=== PATIENT | male | born 1955 | race American Indian/Alaskan Native ===

== ENCOUNTER 2020-08-13 12:37 | Emergency (ER) | payer MEDICARE ==
[2020-08-13 12:54] VITALS: BP 141/84
--- NOTE | 2020-08-13 13:58 | Emergency Department Report ---
ED Abdominal Pain HPI - General Chief Complaint: Abdominal Pain Stated Complaint: ABD PAIN Time Seen by Provider: 08/13/20 13:46 Source: patient Mode of arrival: Ambulatory Limitations: No Limitations - History of Present Illness Initial Comments: This is a 65-year-old -[place] male he presents to the emergency room complaining of generalized abdominal pain and bloating. He denies nausea vomiting no fever chills negative cough no chest pain or shortness of breath. He states the pain comes and go and it is a #6 on the 1-10 scale. Patient was seen at [facility] yesterday and told that they recommended ultrasound and follow-up in the emergency room if no improvement or worsening symptoms. MD Complaint: abdominal pain -: week(s) (2 weeks ) Location: diffuse Quality: aching Consistency: constant Improves With: nothing Worsens With: nothing Associated Symptoms: other (bloating). denies: nausea, vomiting, diarrhea, chills - Related Data Previous Rx's Medication Instructions Recorded Last Taken Type Ondansetron [Zofran Odt] 4 mg PO Q8HR PRN #12 tab.rapdis 08/13/20 Unknown Rx traMADoL [Ultram 50 MG tab] 50 mg PO Q6HR PRN #20 tablet 08/13/20 Unknown Rx Allergies Allergy/AdvReac Type Severity Reaction Status Date / Time No Known Allergies Allergy Unverified 08/13/20 12:54 ED Review of Systems ROS: Stated complaint: ABD PAIN Other details as noted in HPI Comment: All other systems reviewed and negative Constitutional: denies: chills, fever Eyes: denies: eye pain, vision change ENT: denies: ear pain, hearing loss Cardiovascular: denies: chest pain, syncope Endocrine: denies: excessive sweating, intolerance to cold, increased hunger, increased thirst Gastrointestinal: abdominal pain, other (1 day of loose stools). denies: nausea, vomiting, constipation Genitourinary: denies: urgency, dysuria, frequency, hematuria, testicular pain Neurological: denies: headache ED Past Medical Hx - Past Medical History Previous Medical History?: Yes Hx Hypertension: Yes Hx Diabetes: Yes - Surgical History Past Surgical History?: Yes Additional Surgical History: Cardiac pacemaker. Cardiac stents - Social History Smoking Status: Never Smoker Substance Use Type: None - Medications Home Medications: Home Medications Medication Instructions Recorded Confirmed Last Taken Type Ondansetron [Zofran Odt] 4 mg PO Q8HR PRN #12 tab.rapdis 08/13/20 Unknown Rx traMADoL [Ultram 50 MG tab] 50 mg PO Q6HR PRN #20 tablet 08/13/20 Unknown Rx ED Physical Exam - General Limitations: No Limitations General appearance: alert, in no apparent distress - Head Head exam: Absent: atraumatic - Eye Eye exam: Present: normal appearance. Absent: scleral icterus - ENT ENT exam: Present: normal exam, normal orophraynx, mucous membranes moist - Neck Neck exam: Present: normal inspection - Respiratory Respiratory exam: Present: normal lung sounds bilaterally. Absent: respiratory distress, wheezes - Cardiovascular Cardiovascular Exam: Present: regular rate, normal heart sounds, other (+ murmur) - GI/Abdominal GI/Abdominal exam: Present: soft, distended, tenderness, hypoactive bowel sounds. Absent: guarding, rebound, rigid, organomegaly, mass, pulsatile mass, hernia - Rectal Rectal exam: Absent: deferred - Extremities Exam Extremities exam: Present: normal inspection - Back Exam Back exam: Present: normal inspection - Neurological Exam Neurological exam: Present: alert, oriented X3 - Psychiatric Psychiatric exam: Present: normal affect, normal mood - Skin Skin exam: Present: warm, dry ED Course Vital Signs 08/13/20 08/13/20 12:53 14:32 Temperature 98 F Pulse Rate 66 Respiratory 18 16 Rate Blood Pressure 141/84 O2 Sat by Pulse 99 Oximetry - Reevaluation(s) Reevaluation #1: 08/13/20 16:14 Patient with no relief from Tylenol morphine IV and Zofran IV given for pain blood work is back and he has lipase of 136. CT of the abdomen completed awaiting results Reevaluation #2: 08/13/20 16:58 Findings reviewed with patient he now states that he is feeling better decreased abdominal pain I discussed findings with Dr. Givens . he agrees with plan of discharging patient home with follow up by his primary care physician 08/13/20 18:00 ED Medical Decision Making - Lab Data Result diagrams: 08/13/20 14:32 08/13/20 14:32 - EKG Data When compared to previous EKG there are: previous EKG unavailable Interpretation: other (Atrial ventircular dual paced rhythm Rate 80) - Radiology Data Radiology results: report reviewed CT of Abdomen FINDINGS: LOWER CHEST: No significant abnormality. HEPATOBILIARY: No significant abnormality. PANCREAS: No significant abnormality. SPLEEN: No significant abnormality. ADRENALS: No significant abnormality. GENITOURINARY: No significant abnormality. GASTROINTESTINAL/MESENTERY: No significant abnormality. RETROPERITONEUM: No significant adenopathy. REPRODUCTIVE ORGANS: No significant abnormality. VASCULAR: Moderate atherosclerotic calcification without acute abnormality. SKELETAL SYSTEM: No significant abnormality. ADDITIONAL FINDINGS: None. IMPRESSION: 1. No significant abnormality. - Medical Decision Making This gentleman with 2-week complaint of abdominal pain diffuse abdominal pain waxing and waning no nausea or vomiting no fever chills or dysuria. Work-up shows negative CAT scan of his abdomen. His labs show elevated glucose of 297 patient is a known diabetic. Lipase mildly elevated at 136. Negative troponin. Ekg ventricular pacing rate 80. Patient pain is relieved after receiving Tylenol 4 of morphine and 4 of Zofran. After discussion with Dr. 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 All findings were discussed with patient. he reports not having a colonoscopy done in greater than 15 years I discussed follow-up with PCP with plans of further work up including colonoscopy Critical Care Time: No Critical care attestation.: If time is entered above; I have spent that time in minutes in the direct care of this critically ill patient, excluding procedure time. ED Disposition Clinical Impression: Abdominal pain Qualifiers: Abdominal location: generalized Qualified Code(s): R10.84 - Generalized abdominal pain Disposition: TO HOME OR SELFCARE Is pt being admited?: No Does the pt Need Aspirin: No Condition: Stable Instructions: Abdominal Pain (ED) Additional Instructions: Discharge home to follow-up with your primary care doctor in 2 to 3 days. If no improvement or worsening pain nausea vomiting fever or chills return to the emergency room immediately Prescriptions: traMADoL [Ultram 50 MG tab] 50 mg PO Q6HR PRN #20 tablet PRN Reason: Pain Ondansetron [Zofran Odt] 4 mg PO Q8HR PRN #12 tab.rapdis PRN Reason: Nausea And Vomiting Referrals: PRIMARY CARE, [Primary Care Provider] - 3-5 Days Time of Disposition: 17:06
[2020-08-13] MEDS ORDERED: ACETAMINOPHEN 325 MG TAB PO ONE (14:08)
[2020-08-13 14:42] LABS: Hemoglobin 13.9 gm/dl (11.8-15.2); Mean Corpuscular HGB Conc 34 % (32-34); Mean Corpuscular Volume 90 fl (84-94); Platelet Count 307 K/mm3 (140-440); Red Blood Count 4.55 M/mm3 (3.65-5.03)
[2020-08-13] MEDS ORDERED: SODIUM CHLORIDE 0.9% 500 ML 500 ML IV SCH (15:00)
[2020-08-13 15:07] LABS: Alanine Aminotransferase 10 units/L (7-56); BUN/Creatinine Ratio 21; Blood Urea Nitrogen 19 mg/dL (9-20); Calcium 9.7 mg/dL (8.4-10.2); Hemolysis Index 10
[2020-08-13] MEDS ORDERED: MORPHINE 4 MG/1 ML INJ IM ONE (16:02)
[2020-08-13] MEDS ORDERED: ONDANSETRON 4 MG/2 ML INJ IV ONE (16:03)
[2020-08-13 16:11] LABS: Bilirubin,Urine NEG (Negative); Blood,Urine NEG (Negative); Color,Urine Yellow (Yellow); Mucus,Urine FEW /HPF; Urobilinogen,Urine < 2.0 mg/dL (<2.0)
--- NOTE | 2020-08-13 16:15 | Cat Scan Report ---
CT ABDOMEN AND PELVIS WITH CONTRAST INDICATION / CLINICAL INFORMATION: MAIN. TECHNIQUE: Axial CT images were obtained through the abdomen and pelvis after 100 cc Omni [address] scans at this location are performed using CT dose reduction for ALARA by means of automated expos ure control. COMPARISON: None available. FINDINGS: LOWER CHEST: No significant abnormality. HEPATOBILIARY: No significant abnormality. PANCREAS: No significant abnormality. SPLEEN: No significant abnormality. ADRENALS: No significant abnormality. GENITOURINARY: No significant abnormality. GASTROINTESTINAL/MESENTERY: No significant abnormality. RETROPERITONEUM: No significant adenopathy. REPRODUCTIVE ORGANS: No significant abnormality. VASCULAR: Moderate atherosclerotic calcification without acute abnormality. SKELETAL SYSTEM: No significant abnormality. ADDITIONAL FINDINGS: None. IMPRESSION: 1. No significant abnormality. Signer Name: Lei Mcleod MD Signed: 08/13/2020 4:11 PM Workstation Name: [id number]
[2020-08-13] MEDS ORDERED: MORPHINE 4 MG/1 ML INJ IV ONE (17:16)
== END 2020-08-13 17:30 | disposition home or self-care (01) ==
LOC: ED 12:37
DX: R10.84 Generalized abdominal pain (principal); I10 Essential (primary) hypertension; E11.9 Type 2 diabetes mellitus without complications; Z95.0 Presence of cardiac pacemaker; Z79.899 Other long term (current) drug therapy; Z95.818 Presence of other cardiac implants and grafts
CPT/HCPCS: 36415; 74177; 80053; 81001; 83690; 84484; 85027; 93005; 96361; 96372; 96374; 96375; 99284; J2270; J2405; J7040; Q9967